=== PATIENT | female | born 1945 ===

== ENCOUNTER 2025-09-14 08:00 | Day surgery (SDC) | payer OTHER ==
[2025-09-06 09:43] VITALS: BP 126/73
[2025-09-06 10:47] LABS: URINE APPEARANCE Clear; URINE BILIRRUBIN Negative (NEGATIVE); URINE BLOOD Negative; URINE COLOR Yellow; URINE KETONE Negative (NEGATIVE); URINE LEUKOCYTE Negative; URINE NITRATE Negative; URINE PROTEIN Negative (NEGATIVE); URINE UROBILINOGEN 0.2 E.U./dl
[2025-09-06 10:48] LABS: URINE BACTERIA 17.9 uL (0.0-1933); URINE EPITHELIAL CELLS 17.0 uL (0.0-38.8); URINE WBC 5.6 uL (0.0-23.2)
[2025-09-06 10:52] LABS: BASO % 0.6 % (0.1-1.2); EOS # 0.09 (0.04-0.54); EOS % 0.8 % (0.7-7.0); LYMPH # 3.36 (1.18-3.74); LYMPH % 29.1 % (19.3-53.1); MEAN PLATELET VOLUME 9.70 fl (9.4-12.4); MONO # 0.75 (0.24-0.82); MONO % 6.5 % (4.7-12.5); NEUT # 7.17 (1.56-6.13); NEUT % 62.0 % (34.0-71.1); RED CELL DISTRIBUTION WIDTH 14.7 % (11.6-14.4)
[2025-09-06 11:13] LABS: INR 1.03
[2025-09-06 11:48] LABS: ALT/SGPT 24.0 U/L (12-78); AST/SGOT 26.0 U/L (15-37); BILIRUBIN TOTAL 0.38 mg/dL (0.3-1.2); BUN CREA RATIO 26.0 (7.0-25.0); CREATININE SERUM 1.35 mg/dL (0.55-1.02); GFR 37.54; GLOBULINA 3.9 G/DL (2.4-3.5); GLUCOSE FASTING 113.0 mg/dL (65-100); OSMOLALITY SERUM 288.0 MOSM/KG (275-295)
[2025-09-06 12:10] LABS: URINE CAST 0.14 uL (0.0-1.40); URINE GLUCOSE >=1000 MG/DL (NEGATIVE); URINE RBC 1.3 uL (0.0-20.8)
[~2025-09-14 08:00] MED LIST: ACTOS30 MG PO; FARXIGA10 MG PO; FOSINOPRIL-HCT1 EACH PO; LIPOFEN150 MG; METFORMIN HCL500 M3 PO; PLAVIX75 MG PO; ZOCOR20 MG PO
[2025-09-14] MEDS ORDERED: CEFAZOLIN SODIUM 1,000 MG VIAL ONE (09:06)
== END 2025-09-14 12:50 | disposition home or self-care (01) ==
LOC: CIR.AMB 08:00
PROVIDERS: ATTEND Orthopaedic Surgery Hand Surgery
DX: S62.610A Displaced fracture of proximal phalanx of right index finger, initial encounter for closed fracture (principal)